=== PATIENT | male | born 2000 | race African-American/Black ===

== ENCOUNTER 2022-05-31 17:59 | Emergency (ER) | payer SELFPAY ==
[~2022-05-31] VITALS: Ht 177.8 cm; Wt 86.0 kg
[2022-05-31] MEDS ORDERED: SODIUM CHLORIDE 0.9% 1,000 ML IV ONE (19:15)
[2022-05-31] MEDS ORDERED: NALOXONE HCL 1 MG/ML 2ML VIAL IV ONE (19:15)
[2022-05-31 20:32] LABS: BASOPHILS % 0.3 % (0.0-2.0); EOSINOPHILS % 0.2 % (0.0-5.0); HEMATOCRIT. 47.7 % (42.0-52.0); HEMOGLOBIN. 15.4 g/dL (14.0-18.0); LYMPHOCYTES % 12.7 % (20.0-50.0); MEAN CORPUSCULAR HEMOGLOBIN 27.6 pg (28.0-32.0); MEAN CORPUSCULAR VOLUME 85.9 fL (80.0-94.0); MEAN PLATELET VOLUME 8.9 fl (7.4-10.4); MONOCYTES % 5.5 % (2.0-8.0); NEUTROPHILS % 81.3 % (40.0-76.0); PLATELET 249 x1000/uL (130-400); RED BLOOD CELL COUNT 5.56 mill/uL (4.7-6.1); RED CELL DISTRIBUTION WIDTH 13.4 % (11.6-14.6)
[2022-05-31 20:36] LABS: CHLORIDE 110 mEq/L (98-107)
[2022-05-31 21:02] LABS: ETHANOL BLOOD < 10 mg/dL
[2022-05-31] MEDS ORDERED: NALO4SPR BOTHNSTRLS (21:21)
[2022-05-31 21:30] VITALS: BP 118/80
== END 2022-05-31 21:58 | disposition home or self-care (01) ==
LOC: ER 17:59
DX: T40.411A Poisoning by fentanyl or fentanyl analogs, accidental (unintentional), initial encounter (principal); F11.188 Opioid abuse with other opioid-induced disorder; I49.8 Other specified cardiac arrhythmias; R40.0 Somnolence; T40.2X1A Poisoning by other opioids, accidental (unintentional), initial encounter; Y92.89 Other specified places as the place of occurrence of the external cause
CPT/HCPCS: 36415; 80053; 80307; 80320; 80329; 83605; 85025; 96361; 96374; 99291; J2310; J7030; G0480